=== PATIENT | male | born 1990 | race Caucasian/White ===

== ENCOUNTER 2019-01-03 00:15 | Emergency (ER) | payer SELFPAY ==
[~2019-01-03] VITALS: Ht 167.6 cm; Wt 90.9 kg
[2019-01-03] MEDS ORDERED: CEPHALEXIN MONOHYDRATE 500 MG CAPSULE PO ONE (01:15)
[2019-01-03] MEDS ORDERED: LIDOCAINE 1% 10 ML VIAL INJ ONE (01:15)
[2019-01-03] MEDS ORDERED: HYDROCODONE/ACETAMINOPHEN 5-325 MG TABLET PO ONE (01:15)
[2019-01-03] MEDS ORDERED: SODIUM CHLORIDE 0.9% 250 ML IRRIG SOLUTION BOTTLE IRRIG ONE (01:15)
[2019-01-03 02:54] VITALS: BP 147/102
== END 2019-01-03 03:01 | disposition home or self-care (01) ==
LOC: EMS 00:16
DX: S61.412A Laceration without foreign body of left hand, initial encounter (principal); F17.210 Nicotine dependence, cigarettes, uncomplicated; W45.8XXA Other foreign body or object entering through skin, initial encounter; Y93.89 Activity, other specified; Y92.89 Other specified places as the place of occurrence of the external cause; Y99.8 Other external cause status
CPT/HCPCS: 12002; 99283; 99406; J3490